=== PATIENT | male | born 1985 | race African-American/Black ===

== ENCOUNTER 2016-09-05 13:24 | Outpatient (CLI) | payer MEDICAID ==
[2016-09-05 19:23] LABS: IRON 79 ug/dL (45-182); TOTAL IRON BINDING CAPACITY 256 ug/dL (250-450); TRANSFERRIN 183 mg/dL (180-329)
[2016-09-05 19:26] LABS: BASOPHILS % (AUTO) 0.5 %; EOSINOPHILS # (AUTO) 0.4 10^3/uL (0.0-0.7); EOSINOPHILS % (AUTO) 5.9 %; HCT - HEMATOCRIT 42.5 % (42.0-52.0); HGB - HEMOGLOBIN 13.9 g/dL (14.0-18.0); IMMATURE RETIC FRACTION 0.27; LYMPHOCYTES # (AUTO) 3.1 10^3/uL (1.5-3.5); MEAN CORPUSCULAR HEMOGLOBIN 27.9 pg (27.0-31.0); MEAN CORPUSCULAR HGB CONC 32.8 g/dL (32.0-36.0); MEAN CORPUSCULAR VOLUME 84.9 fL (80.0-94.0); MEAN PLATELET VOLUME 7.8 fL (7.4-11.4); MONOCYTES # (AUTO) 0.3 10^3/uL (0.0-1.0); MONOCYTES % (AUTO) 4.6 %; NEUTROPHILS # (AUTO) 3.6 10^3/uL (1.5-6.6); RED CELL DISTRIBUTION WIDTH 13.7 % (12.0-15.0); UNCORRECTED WHITE BLOOD COUNT 7.6 x10^3/uL; WHITE BLOOD COUNT 7.6 x10^3/uL (4.8-10.8)
[2016-09-05 19:37] LABS: FERRITIN 114.1 ng/mL (23.9-336.2)
[2016-09-05 19:40] LABS: FOLATE 19.43 ng/mL (5.90 - >24.8)
== END 2016-09-05 23:59 | disposition home or self-care (01) ==
LOC: LAB.N 13:24
PROVIDERS: ATTEND Physician Assistant
DX: D50.8 Other iron deficiency anemias (principal); I73.00 Raynaud's syndrome without gangrene
CPT/HCPCS: 36415; 82607; 82728; 82746; 83540; 84466; 85025; 85044

== ENCOUNTER 2016-11-21 16:43 | Emergency (ER) | payer MEDICAID ==
[2016-11-21 16:49] VITALS: BP 147/85
[2016-11-21] MEDS ORDERED: LIDOCAINE 1% 2 ML VIAL ONE (17:00)
[2016-11-21] MEDS ORDERED: TETANUS/DIPHTHERIA/PERTUSSIS 0.5 ML SYRINGE IM ONE ×2 (17:13→17:22)
--- NOTE | 2016-11-21 17:15 | ED Physician Documentation ---
PD HPI UPPER EXT INJURY - Stated complaint Stated Complaint: RIGHT FINGER INJ - Chief complaint Chief Complaint: Laceration - History obtained from History obtained from: Patient - History of Present Illness Location: Right, Finger (index) Type of injury: Laceration Where injury occurred: Work Timing - onset: Today Timing - duration: Minutes Timing - details: Abrupt onset, Still present Improved by: Rest, Immobilization Worsened by: Moving, Palpating Associated symptoms: Numbness. No: Weakness Contributing factors: No: Anticoagulated Similar symptoms before: Diagnosis (laceration) Recently seen: Not recently seen - Additonal information Additional information: 31-year-old male was taking out the garbage. He pushed down the garbage into the garbage can cut his finger on the lid of a can. He has been able to control bleeding with direct pressure. Review of Systems Constitutional: denies: Fever Respiratory: denies: Cough GI: denies: Vomiting Skin: reports: Laceration (s). denies: Rash Musculoskeletal: reports: Extremity pain. denies: Neck pain, Back pain PD PAST MEDICAL HISTORY - Past Medical History Past Medical History: No Cardiovascular: None Respiratory: Other Neuro: None Endocrine/Autoimmune: None Musculoskeletal: None - Past Surgical History Past Surgical History: Yes Ortho: Other - Present Medications Home Medications: Ambulatory Orders Medication Instructions Recorded Confirmed Ibuprofen [Motrin] 800 mg PO Q8H PRN #30 tablet 09/24/14 - Allergies Allergies/Adverse Reactions: Allergies Allergy/AdvReac Type Severity Reaction Status Date / Time No Known Drug Allergies Allergy Verified 11/21/16 16:48 - Social History Does the pt smoke?: Yes Smoking Status: Current every day smoker Does the pt drink ETOH?: Yes Does the pt have substance abuse?: Yes - Immunizations Immunizations are current?: Yes - POLST Patient has POLST: No PD ED PE NORMAL - Vitals Vital signs reviewed: Yes (hypertensive ) - General General: No acute distress, Well developed/nourished - Neck Neck: Supple, no meningeal sign, No bony TTP - Respiratory Respiratory: No respiratory distress - Derm Derm: Normal color, Warm and dry, No rash - Extremities Extremities: No deformity, No edema, Other (there is a 2.5c laceration to the volar surface of the right index fingertip. ) - Neuro Neuro: No motor deficit, No sensory deficit - Psych Psych: Normal mood, Normal affect Results - Vitals Vitals: Vital Signs - 24 hr 11/21/16 16:45 Temperature 36.3 C L Heart Rate 60 Respiratory 18 Rate Blood Pressure 147/85 H O2 Saturation 100 Oxygen O2 Source Room air Procedures - Laceration (location) right index Length in cm: 2.5 Wound type: Linear Neurovascular status: Motor intact, Vascular intact Anesthesia: Lidocaine 1% Wound Preparation: Hibiclens, Irrigated copiously NS, Wound explored, To the base Skin layer closure: Nylon, Interrupted, Size #-0 - enter number (5-0) Other: Patient tolerated well, No complications, Neurovascular intact, Dressing applied, Tetanus booster given Complexity: Simple PD MEDICAL DECISION MAKING - ED course Complexity details: reviewed results, re-evaluated patient, considered differential, d/w patient ED course: 31-year-old male has lacerated his finger on a can lid and this laceration is sutured Departure - Departure Disposition: 01 Home, Self Care Clinical Impression: Finger laceration Qualifiers: Encounter type: initial encounter Finger: index finger Damage to nail status: without damage Foreign body presence: without foreign body Laterality: right Qualified Code(s): S61.210A - Laceration without foreign body of right index finger without damage to nail, initial encounter Condition: Stable Instructions: ED Laceration Hand Follow-Up: Bere Rico MD [Primary Care Provider] - Comments: Sutures will need to be removed in 7-10 days.
== END 2016-11-21 17:48 | disposition home or self-care (01) ==
LOC: ED 16:43
DX: S61.210A Laceration without foreign body of right index finger without damage to nail, initial encounter (principal); W26.8XXA Contact with other sharp object(s), not elsewhere classified, initial encounter; Y93.E9 Activity, other interior property and clothing maintenance; Y99.0 Civilian activity done for income or pay; Z23 Encounter for immunization; F17.200 Nicotine dependence, unspecified, uncomplicated
CPT/HCPCS: 12001; 90471; 99282; 99283

== ENCOUNTER 2017-03-02 13:28 | Outpatient (CLI) | payer MEDICAID ==
[2017-03-06 12:10] LABS: HSV 2 IGG TYPE SPECIFIC AB <0.90 index
== END 2017-03-02 13:29 | disposition home or self-care (01) ==
LOC: LAB.N 13:28
PROVIDERS: ATTEND Physician Assistant Medical
DX: B00.1 Herpesviral vesicular dermatitis (principal)
CPT/HCPCS: 36415; 81599; 86695; 86696

== ENCOUNTER 2017-03-21 15:39 | Outpatient (CLI) | payer MEDICAID ==
--- NOTE | 2017-03-22 12:29 | XRAY Report ---
DATE OF SERVICE: 03/21/2017 THREE-VIEW LEFT KNEE: 03/21/2017 CLINICAL INDICATION: Pain. FINDINGS: Frontal, lateral, sunrise views of the left knee demonstrate no evidence of fracture or dislocation. No effusion is present. IMPRESSION: NORMAL LEFT KNEE. TD: 03/22/2017 12:27
== END 2017-03-21 15:40 | disposition home or self-care (01) ==
LOC: DI.N 15:39
PROVIDERS: ATTEND Physician Assistant Medical
DX: M25.562 Pain in left knee (principal)

== ENCOUNTER 2018-07-15 23:31 | Emergency (ER) | payer OTHER, MEDICAID ==
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
[2018-07-16 00:52] VITALS: BP 142/94
== END 2018-07-16 01:00 | disposition home or self-care (01) ==
LOC: ED 23:31
DX: M54.2 Cervicalgia (principal); R51 Headache; M25.512 Pain in left shoulder; V89.2XXA Person injured in unspecified motor-vehicle accident, traffic, initial encounter; F17.200 Nicotine dependence, unspecified, uncomplicated
CPT/HCPCS: 70450; 72125; 99283

== ENCOUNTER 2018-12-24 22:41 | Outpatient (CLI) | payer SELFPAY | END 2018-12-24 22:42 | disposition EMS.NT | LOC: EMS 22:41 | PROVIDERS: ATTEND Surgery | DX: M25.512 Pain in left shoulder (principal) ==

== ENCOUNTER 2018-12-24 23:41 | Emergency (ER) | payer SELFPAY ==
--- NOTE | 2018-12-24 23:57 | ED Physician Documentation ---
PD HPI CHEST PAIN - Stated complaint Stated Complaint: BACK/NECK PAIN - Chief complaint Chief Complaint: Back Pain PD PAST MEDICAL HISTORY - Past Medical History Cardiovascular: None Respiratory: Asthma, Other Neuro: None Endocrine/Autoimmune: None GI: None : None HEENT: None Psych: None Musculoskeletal: None Derm: None - Past Surgical History Past Surgical History: Yes Ortho: Other - Present Medications Home Medications: Ambulatory Orders Medication Instructions Recorded Confirmed Ibuprofen [Motrin] 800 mg PO Q8H PRN #30 tablet 09/24/14 07/15/18 - Allergies Allergies/Adverse Reactions: Allergies Allergy/AdvReac Type Severity Reaction Status Date / Time No Known Drug Allergies Allergy Verified 12/24/18 23:53 - Social History Does the pt smoke?: Yes Smoking Status: Current every day smoker Does the pt drink ETOH?: No Does the pt have substance abuse?: Yes - Immunizations Immunizations are current?: Yes - POLST Patient has POLST: No Results - Vitals Vitals: Vital Signs - 24 hr 12/24/18 23:45 Temperature 37 C Heart Rate 67 Respiratory 17 Rate Blood Pressure 136/83 H O2 Saturation 98 Oxygen O2 Source Room air
--- NOTE | 2018-12-25 00:11 | ED Physician Documentation ---
PD HPI UPPER EXT INJURY - Stated complaint Stated Complaint: BACK/NECK PAIN - Chief complaint Chief Complaint: Back Pain PD PAST MEDICAL HISTORY - Past Medical History Past Medical History: Yes Cardiovascular: None Respiratory: Asthma, Other Neuro: None Endocrine/Autoimmune: None GI: None : None HEENT: None Psych: None Musculoskeletal: None Derm: None - Past Surgical History Past Surgical History: Yes Ortho: Other - Present Medications Home Medications: Ambulatory Orders Medication Instructions Recorded Confirmed Ibuprofen [Motrin] 800 mg PO Q8H PRN #30 tablet 09/24/14 07/15/18 - Allergies Allergies/Adverse Reactions: Allergies Allergy/AdvReac Type Severity Reaction Status Date / Time No Known Drug Allergies Allergy Verified 12/24/18 23:53 - Social History Does the pt smoke?: Yes Smoking Status: Current every day smoker Does the pt drink ETOH?: No Does the pt have substance abuse?: Yes Substance Use and Type: Marijuana - Immunizations Immunizations are current?: Yes - POLST Patient has POLST: No Results - Vitals Vitals: Vital Signs - 24 hr 12/24/18 23:45 Temperature 37 C Heart Rate 67 Respiratory 17 Rate Blood Pressure 136/83 H O2 Saturation 98 Oxygen O2 Source Room air
--- NOTE | 2018-12-25 00:11 | ED Physician Documentation ---
History of Present Illness - Stated complaint Stated Complaint: BACK/NECK PAIN - Chief complaint Chief Complaint: Back Pain - History obtained from History obtained from: Patient - History of Present Illness Timing: How many hours ago (1) Pain level now: 8 Improved by: rest Worsened by: movement (particularly of LUE), palpation, deep breath in - Additonal information Additional information: patient was stretching 1 hour ago when he had sudden onset left low neck pain radiating around to left upper anterior chest, as well as left shoulder pain that is distinctly worse with movement at left shoulder Review of Systems Cardiac: reports: Chest pain / pressure. denies: Palpitations, Pedal edema, Calf pain Respiratory: denies: Dyspnea, Cough Musculoskeletal: reports: Neck pain, Joint pain. denies: Extremity swelling PD PAST MEDICAL HISTORY - Past Medical History Past Medical History: Yes Cardiovascular: None Respiratory: Asthma, Other Neuro: None Endocrine/Autoimmune: None GI: None : None HEENT: None Psych: None Musculoskeletal: None Derm: None - Past Surgical History Past Surgical History: Yes Ortho: Other - Present Medications Home Medications: Ambulatory Orders Medication Instructions Recorded Confirmed Ibuprofen [Motrin] 800 mg PO Q8H PRN #30 tablet 09/24/14 07/15/18 Cyclobenzaprine [Flexeril] 10 mg PO TID PRN #14 tablet 12/25/18 Hydrocodone/Acetaminophen 1 - 2 each PO Q6HR PRN #14 tablet 12/25/18 [Hydrocodone-Acetamin 5-325 mg] - Allergies Allergies/Adverse Reactions: Allergies Allergy/AdvReac Type Severity Reaction Status Date / Time No Known Drug Allergies Allergy Verified 12/24/18 23:53 - Social History Does the pt smoke?: Yes Smoking Status: Current every day smoker Does the pt drink ETOH?: No Does the pt have substance abuse?: Yes Substance Use and Type: Marijuana - Immunizations Immunizations are current?: Yes - POLST Patient has POLST: No PD ED PE NORMAL - Vitals Vital signs reviewed: Yes - General General: Alert and oriented X 3, Well developed/nourished, Other (appears to be in moderate painful distress. holds LUE adducted due to painful movement) - HEENT HEENT: Moist mucous membranes - Neck Neck: No bony TTP - Cardiac Cardiac: RRR, No murmur, No gallop, No rub - Respiratory Respiratory: No respiratory distress, Clear bilaterally Results - Vitals Vitals: Oxygen O2 Source Room air - Rads (name of study) chest xray Radiology: Prelim report reviewed, See rad report PD MEDICAL DECISION MAKING - ED course Complexity details: reviewed results, re-evaluated patient, considered differential, d/w patient Departure - Departure Disposition: 01 Home, Self Care Clinical Impression: Strain of chest wall Condition: Good Instructions: ED Sprain Strain Neck Prescriptions: Hydrocodone/Acetaminophen [Hydrocodone-Acetamin 5-325 mg] 1 - 2 each PO Q6HR PRN #14 tablet PRN Reason: Pain Cyclobenzaprine [Flexeril] 10 mg PO TID PRN #14 tablet PRN Reason: Spasms Forms: Activity restrictions Discharge Date/Time: 12/25/18 02:05
[2018-12-25] MEDS ORDERED: KETOROLAC 60 MG/2 ML VIAL IM STA (00:48)
--- NOTE | 2018-12-25 01:33 | XRAY Report ---
Reason: left chest pain, dyspnea Procedure Date: 12/25/2018 Accession Number: [id number] / [id number] Procedure: XR - Chest 2 View X-Ray CPT Code: 09607 Final Report FULL RESULT: EXAM: CHEST RADIOGRAPHY EXAM DATE: 12/25/2018 01:06 AM. CLINICAL HISTORY: Left chest pain, dyspnea. COMPARISON: None. TECHNIQUE: 2 views. FINDINGS: Lungs/Pleura: No focal opacities evident. No pulmonary edema. No pleural effusion. No pneumothorax. Normal volumes. Mediastinum: Heart and mediastinal contours are unremarkable. Other: None. IMPRESSION: No evidence of acute cardiopulmonary process. RADIA
[2018-12-25] MEDS ORDERED: CYCLOBENZAPRINE 10 MG TABLET PO STA (01:46)
[2018-12-25] MEDS ORDERED: HYDROcod/ACETAM 5/325 MG TABLET PO STA (01:47)
[2018-12-25 01:57] VITALS: BP 130/90
== END 2018-12-25 02:05 | disposition home or self-care (01) ==
LOC: ED 23:41
DX: S29.011A Strain of muscle and tendon of front wall of thorax, initial encounter (principal); M54.2 Cervicalgia; M25.512 Pain in left shoulder; X50.9XXA Other and unspecified overexertion or strenuous movements or postures, initial encounter; Y93.89 Activity, other specified; F17.200 Nicotine dependence, unspecified, uncomplicated
CPT/HCPCS: 71046; 96372; 99283; A9270

== ENCOUNTER 2020-03-03 20:43 | Outpatient (CLI) | payer SELFPAY | END 2020-03-03 20:44 | disposition EMS.NT | LOC: EMS 20:43 | PROVIDERS: ATTEND Surgery | DX: M25.511 Pain in right shoulder (principal) ==

== ENCOUNTER 2020-11-21 02:17 | Outpatient (CLI) | payer OTHER | END 2020-11-21 02:18 | disposition critical access hospital (66) | LOC: EMS 02:17 | DX: Z04.3 Encounter for examination and observation following other accident (principal); M54.2 Cervicalgia; R41.0 Disorientation, unspecified; R41.3 Other amnesia | CPT/HCPCS: A0425; A0427 ==

== ENCOUNTER 2020-11-21 02:36 | Emergency (ER) | payer OTHER ==
[2020-11-21 03:01] LABS: BASOPHILS % (AUTO) 0.4 %; EOSINOPHILS # (AUTO) 0.4 10^3/uL (0.0-0.7); EOSINOPHILS % (AUTO) 6.4 %; HCT - HEMATOCRIT 43.9 % (42.0-52.0); HGB - HEMOGLOBIN 14.1 g/dL (14.0-18.0); LYMPHOCYTES # (AUTO) 2.9 10^3/uL (1.5-3.5); LYMPHOCYTES % (AUTO) 43.2 %; MEAN CORPUSCULAR HEMOGLOBIN 27.9 pg (27.0-31.0); MEAN CORPUSCULAR HGB CONC 32.1 g/dL (32.0-36.0); MEAN CORPUSCULAR VOLUME 86.9 fL (80.0-94.0); MEAN PLATELET VOLUME 8.9 fL (7.4-11.4); MONOCYTES # (AUTO) 0.4 10^3/uL (0.0-1.0); MONOCYTES % (AUTO) 6.5 %; NEUTROPHILS # (AUTO) 2.9 10^3/uL (1.5-6.6); NEUTROPHILS % (AUTO) 43.1 %; PLT - PLATELET COUNT 235 10^3/uL (130-450); RED BLOOD COUNT 5.05 10^6/uL (4.70-6.10); RED CELL DISTRIBUTION WIDTH 13.7 % (12.0-15.0); WHITE BLOOD COUNT 6.8 x10^3/uL (4.8-10.8)
[2020-11-21 03:06] LABS: BILIRUBIN,URINE NEGATIVE (NEGATIVE); CLARITY,URINE CLEAR (CLEAR); GLUCOSE, URINE (UA) NEGATIVE (NEGATIVE); KETONES,URINE (UA) NEGATIVE (NEGATIVE); LEUKOCYTE ESTERASE, URINE NEGATIVE (NEGATIVE); MUDS CUTOFF CONCENTRATIONS CUTOFF CONC BELOW:; NITRITE,URINE NEGATIVE (NEGATIVE); OCCULT BLOOD,URINE TRACE-INTA (NEGATIVE); PROTEIN,URINE NEGATIVE (NEGATIVE); UROBILINOGEN,URINE 0.2 (NORMAL) E.U./dL (NORMAL)
[2020-11-21 03:09] LABS: AMPHETAMINE SCREEN,URINE NEGATIVE (NEGATIVE); BARBITURATE SCREEN,UR NEGATIVE (NEGATIVE); BENZODIAZEPINES SCREEN, URINE NEGATIVE (NEGATIVE); COCAINE SCREEN URINE NEGATIVE (NEGATIVE); METHADONE SCREEN, URINE NEGATIVE (NEGATIVE); METHAMPHETAMINES SCREEN, URINE NEGATIVE (NEGATIVE); OPIATE SCREEN, URINE NEGATIVE (NEGATIVE); OXYCODONE SCREEN, URINE NEGATIVE (NEGATIVE); PROPOXYPHENE SCREEN, URINE NEGATIVE (NEGATIVE); THC CANNABINOID SCREEN, URINE POSITIVE (NEGATIVE); TRICYCLIC ANTIDEPRESSANT,URINE NEGATIVE (NEGATIVE)
[2020-11-21 03:11] LABS: ALBUMIN 4.8 g/dL (3.2-5.5); ALBUMIN/GLOBULIN RATIO 1.8 (1.0-2.2); BILIRUBIN,TOTAL 0.5 mg/dL (0.2-1.0); CALCIUM 9.1 mg/dL (8.5-10.3); ETOH - ETHANOL 227.2 mg/dL; POTASSIUM 3.7 mmol/L (3.5-5.0); TOTAL PROTEIN 7.5 g/dL (6.7-8.2)
[2020-11-21] MEDS ORDERED: ONDANSETRON ODT 4 MG TABLET TL PRN (03:15)
[2020-11-21] MEDS ORDERED: SODIUM CHLORIDE FLUSH 0.9% 10 ML SYRINGE IVP PRN (03:15)
[2020-11-21] MEDS ORDERED: IBUPROFEN 400 MG TABLET PO PRN (03:15)
[2020-11-21] MEDS ORDERED: HYDROmorphone 0.5 MG/0.5 ML SYRINGE IVP PRN (03:15)
[2020-11-21] MEDS ORDERED: ACETAMINOPHEN 325 MG TABLET PO PRN (03:15)
[2020-11-21] MEDS ORDERED: ONDANSETRON 4 MG/2 ML VIAL IVP PRN (03:15)
[2020-11-21] MEDS ORDERED: HYDROcod/ACETAM 10 MG/325 MG TABLET PO PRN (03:15)
[2020-11-21] MEDS ORDERED: MAG HYDROX/AL HYDROX/SIMETH 30 ML UDC PO PRN (03:22)
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
[2020-11-21] MEDS ORDERED: LACTATED RINGERS 1,000 ML IV SCH (04:00)
[2020-11-21] MEDS ORDERED: PROPARACAINE 0.5% OPHTH DROPS 15 ML EACHEYE STA (04:32)
[2020-11-21] MEDS ORDERED: POLYMYXIN B/TRIMETH OPHTH DROPS RIGHTEYE STA (04:55)
[2020-11-21 06:41] LABS: B. PARAPERTUSSIS- RESP PCR PAN NOT DETECTED; B. PERTUSSIS- RESP PCR PANEL NOT DETECTED; C. PNEUMONIAE- RESP PCR PANEL NOT DETECTED; CORONAVIRUS 229E-RESP PCR NOT DETECTED; CORONAVIRUS HKU1-RESP PCR NOT DETECTED; CORONAVIRUS NL63-RESP PCR NOT DETECTED; CORONAVIRUS OC43-RESP PCR NOT DETECTED; HUMAN METAPNEUMOVIRUS NOT DETECTED; INFLUENZA A- RESP PCR PANEL NOT DETECTED; INFLUENZA B - RESP PCR PANEL NOT DETECTED; M. PNEUMONIAE- RESP PCR PANEL NOT DETECTED; PARAINFLUENZA VIRUS 1 NOT DETECTED; PARAINFLUENZA VIRUS 2 NOT DETECTED; PARAINFLUENZA VIRUS 3 NOT DETECTED; PARAINFLUENZA VIRUS 4 NOT DETECTED; RHINOVIRUS/ENTEROVIRUS DETECTED; RSV- RESP PCR PANEL NOT DETECTED; SARS-CoV-2 -RESP PCR PANEL NOT DETECTED
[2020-11-21] MEDS ORDERED: SODIUM CHLORIDE FLUSH 0.9% 10 ML SYRINGE IVP SCH (09:00)
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
--- NOTE | 2020-11-21 09:02 | CT Report ---
PROCEDURE: CT brain without contrast INDICATIONS: Pain TECHNIQUE: Noncontrast 4.5 mm thick angled axial sections acquired from the foramen magnum to the vertex. For r adiation dose reduction, the following was used: automated exposure control, adjustment of mA and/or kV according to patient size. COMPARISON: 07/16/2018 FINDINGS: Image quality: Excellent. CSF spaces: Basal cisterns are patent. No extra-axial fluid collections. Ventricles are normal in size and shape. Brain: No midline shift. No intracranial masses or hemorrhage. Powers-white matter interface is norm al. Skull and face: Calvarium and visualized facial bones are intact, without suspicious lesions. Sinuses: Visualized sinuses and mastoids are clear. IMPRESSION: Normal CT brain Note: Final report is concordant with preliminary report provided by [employer] Reviewed by: Migue Wayne MD on 11/21/2020 8:00 AM MARY Approved by: Migue Wayne MD on 11/21/2020 8:00 AM AKSENDY Station ID: [id number]
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
[2020-11-21 10:09] VITALS: BP 133/102
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
== END 2020-11-21 12:05 | disposition home or self-care (01) ==
LOC: EDUNIT# → ED 02:36
DX: S06.0X9A Concussion with loss of consciousness of unspecified duration, initial encounter (principal); S05.01XA Injury of conjunctiva and corneal abrasion without foreign body, right eye, initial encounter; S60.512A Abrasion of left hand, initial encounter; S60.511A Abrasion of right hand, initial encounter; M25.511 Pain in right shoulder; V48.5XXA Car driver injured in noncollision transport accident in traffic accident, initial encounter; Y92.410 Unspecified street and highway as the place of occurrence of the external cause; M50.321 Other cervical disc degeneration at C4-C5 level; Z20.822 Contact with and (suspected) exposure to COVID-19; F17.200 Nicotine dependence, unspecified, uncomplicated
CPT/HCPCS: 0202U; 36415; 70450; 71045; 72125; 80053; 80306; 80320; 81003; 83690; 85025; 99284; 99285; A9270; J3490; 81001; 87086

== ENCOUNTER 2021-05-02 08:00 | Outpatient (CLI) | payer OTHER ==
--- NOTE | 2021-05-02 14:32 | XRAY Report ---
PROCEDURE: Foot 3 View LT INDICATIONS: L FOOT PX TECHNIQUE: 3 views of the foot were acquired. COMPARISON: None FINDINGS: Bones: No fractures or dislocations. There is a transverse fracture of the proximal phalanx of the little toe. No suspicious bony lesions. Soft tissues: No tibiotalar joint effusion. Achilles tendon appears normal. IMPRESSION: Transverse fracture of the proximal phalanx of the little toe. Reviewed by: Patrick Weems on 05/02/2021 2:30 PM PDT Approved by: Patrick Weems on 05/02/2021 2:30 PM PDT Station ID: [id number]
== END 2021-05-02 23:59 | disposition home or self-care (01) ==
LOC: DI.N 08:00
PROVIDERS: ATTEND Family Medicine
DX: S92.512A Displaced fracture of proximal phalanx of left lesser toe(s), initial encounter for closed fracture (principal)

== ENCOUNTER 2021-05-09 08:19 | Outpatient (CLI) | payer OTHER ==
--- NOTE | 2021-05-09 11:33 | XRAY Report ---
PROCEDURE: Foot 3 View LT INDICATIONS: 5TH TOE FRACTURE TECHNIQUE: 3 views of the foot were acquired. COMPARISON: 05/02/2021 FINDINGS: Obliquely oriented mildly displaced fracture of the left fifth proximal phalanx not signifi cantly changed. Remaining bones are intact. IMPRESSION: No significant change. Reviewed by: Cecil De Jeuss MD on 05/09/2021 11:31 AM PDT Approved by: Cecil De Jesus MD on 05/09/2021 11:31 AM PDT Station ID: [id number]
== END 2021-05-09 23:59 | disposition home or self-care (01) ==
LOC: DI.WOS 08:19
PROVIDERS: ATTEND Physician Assistant
DX: S92.515D Nondisplaced fracture of proximal phalanx of left lesser toe(s), subsequent encounter for fracture with routine healing (principal)

== ENCOUNTER 2021-06-13 07:42 | Outpatient (CLI) | payer OTHER ==
--- NOTE | 2021-06-13 17:27 | XRAY Report ---
PROCEDURE: Foot 3 View LT INDICATIONS: 5TH TOE FRACTURE TECHNIQUE: 3 weight bearing views of the foot were acquired. COMPARISON: 05/09/2021 FINDINGS: Bones: Redemonstration of oblique fracture involving the left fifth toe proximal phalanx. There is m ild displacement of the distal fracture fragment. Subtle increased sclerosis involving the distal and proximal fracture fragments with suggestion of early periosteal reaction. Comminuted fracture of the fifth toe distal phalanx unchanged. Pes planus. Remainder of the visualized osseous structures appea r intact. No suspicious bony lesions. Soft tissues: No tibiotalar joint effusion. Achilles tendon appears normal. IMPRESSION: 1. Redemonstration of oblique fracture of the left fifth toe proximal phalanx in unchanged alignment with findings suggestive of possible early fracture healing. 2. Comminuted fracture of the left fifth toe distal phalanx unchanged. 3. Pes planus. Reviewed by: Brandon Mcgarry MD on 06/13/2021 5:25 PM PDT Approved by: Brandon Mcagrry MD on 06/13/2021 5:25 PM PDT Station ID: [id number]
== END 2021-06-13 23:59 | disposition home or self-care (01) ==
LOC: DI.WOS 07:42
PROVIDERS: ATTEND Orthopaedic Surgery
DX: S92.512A Displaced fracture of proximal phalanx of left lesser toe(s), initial encounter for closed fracture (principal)

== ENCOUNTER 2022-07-13 08:00 | Outpatient (CLI) | payer MEDICAID ==
--- NOTE | 2022-07-13 14:57 | XRAY Report ---
PROCEDURE: Shoulder 3 View RT INDICATIONS: RIGHT SHOULDER PAIN TECHNIQUE: 4 views of the shoulder were acquired. COMPARISON: Right shoulder radiographs 07/01/2013. FINDINGS: Small crescentic bony fragment projecting adjacent to the AC joint is indeterminate for a tiny fractu re fragment or sequela of degenerative change. Otherwise no potential acute fracture identified. Mode rate AC joint hypertrophy present. No glenohumeral joint dislocation. IMPRESSION: Small crescentic bony fragment projecting adjacent to the AC joint is indeterminate for a tiny age-in determinate fracture fragment or sequela of degenerative change or other etiology. If symptoms persist, follow-up radiographs and/or CT or MRI may be helpful for further evaluation. Reviewed by: Otto Baird MD on 07/13/2022 2:55 PM PDT Approved by: Otto Baird MD on 07/13/2022 2:55 PM PDT Station ID: [id number]
== END 2022-07-13 23:59 | disposition home or self-care (01) ==
LOC: DI.WOS 08:00
PROVIDERS: ATTEND Physician Assistant Surgical
DX: M24.211 Disorder of ligament, right shoulder (principal)

== ENCOUNTER 2023-04-27 13:58 | Emergency (ER) | payer MEDICAID ==
[2023-04-27 14:35] VITALS: O2SAT 100
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
--- NOTE | 2023-04-27 15:27 | XRAY Report ---
PROCEDURE: Hand 3+V BL INDICATIONS: hand pain/fall TECHNIQUE: 3 views of the hand(s) acquired. COMPARISON: None. FINDINGS: Bones: No fractures or dislocations. No suspicious bony lesions. Soft tissues: No suspicious soft tissue calcifications or masses. IMPRESSION: No acute bony abnormality. If pain persists with conservative management, consider repeat radiographs in 10-14 days or cross-sectional imaging. Reviewed by: Tyler Mancera MD on 04/27/2023 3:26 PM PST Approved by: Tyler Mancera MD on 04/27/2023 3:26 PM PST Station ID: [id number]
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
--- NOTE | 2023-04-27 16:14 | CT Report ---
PROCEDURE: Chest WO INDICATIONS: ETOH/fall down stairs/pain through back and L clav TECHNIQUE: A CT scan of the chest was performed. Intravenous contrast media was not administered. Images were re corded and evaluated at appropriate window settings. Reformats: axial MIP of the chest, coronal and s agittal. For radiation dose reduction, the following was used: automated exposure control, adjustment of mA and/or kV according to patient size. COMPARISON: CT cervical spine 324 FINDINGS: Image quality: Diagnostic. Chest wall and lower neck: No thyroid nodule which requires sonographic follow up. No axillary or sup raclavicular adenopathy by size. Lungs and pleura: No consolidation. No pleural effusions. No pneumothorax. No suspicious pulmonary n odules which require follow up. Mediastinum: Heart size is normal. No pericardial effusion. No large vessel abnormality. No mediastin al adenopathy by size criteria. Bones: No aggressive osseous abnormality. Upper Abdomen: Unremarkable. IMPRESSION: No visualized osseous or visceral traumatic injury. Reviewed by: Carla Tejeda MD on 04/27/2023 4:13 PM PST Approved by: Carla Tejeda MD on 04/27/2023 4:13 PM PST Station ID: [id number]
[2023-04-27 16:41] VITALS: BP 137/94
[2023-04-27] MEDS: LIDOCAINE PATCH 5% TOP STA (16:45)
== END 2023-04-27 17:08 | disposition home or self-care (01) ==
LOC: ED 13:58
DX: M54.2 Cervicalgia (principal); M54.50 Low back pain, unspecified; F17.200 Nicotine dependence, unspecified, uncomplicated; W10.9XXA Fall (on) (from) unspecified stairs and steps, initial encounter
CPT/HCPCS: 70450; 71250; 72125; 73130; 99283; 99284; A9270